=== PATIENT | male | born 1940 | race Hispanic/Latino ===

== ENCOUNTER 2020-09-14 19:33 | Emergency (ER) | payer OTHER ==
[2020-09-14] MEDS ORDERED: NA CHLORIDE 0.9% 1,000 ML IV ONE (19:34)
[2020-09-14] MEDS ORDERED: EPINEPHrine 1 MG/10 ML SYR IV ONE (19:34)
--- NOTE | 2020-09-14 20:08 | EDPHYS ---
Physician Documentation [facility] Name: Linus Jules Age: 80 yrs Sex: Male : 1940 Arrival Date: 09/14/2020 Time: 19:42 Bed 2 Private MD: ED Physician Sofia Mosquera HPI: 09/14 19:59 This 80 yrs old Male presents to ER via EMS with complaints of cardiac arrest .ma2 19:59 Onset: suddenly, 0.5 hour(s) ago. Associated signs and symptoms: Pertinent negatives: ma2 diaphoresis, dizziness, lower extremity pain, lightheadedness, nausea. Severity of pain: At its worst the pain was severe in the emergency department the pain is unchanged. EMS care prior to arrival includes: epinephrine, supplemental oxygen, cpr for 30 min. Historical: - Allergies: 19:51 Unable to obtain; em - PMHx: 19:51 Hypertension; Diabetes - IDDM; em - PSHx: 19:51 Unable to obtain; em - Social history:: Patient/guardian denies using alcohol, street drugs, The patient lives with family. ROS: 19:59 Unable to obtain ROS due to unresponsive. ma2 Exam: 19:59 Head/Face: Normocephalic, atraumatic. Eyes: Pupils equal round and fix dilated, not ma2 responsive to light Neck: intubated with joe tube,Trachea midline, no thyromegaly or masses palpated, Chest/axilla: Normal chest wall appearance and motion. Nontender with no deformity. No lesions are appreciated. Cardiovascular: asystole, no cardiac activity No pulse Abdomen/GI: No distension or tympany. Neuro: unresponsive, gcs 3 19:59 Respiratory: intubated with joe by ems, good equal breath sounds bilaterally ma2 Vital Signs: 19:39 Pulse 0; Resp 16 A; Temp 101.4(R); em 19:45 Pulse 0; Resp 0; ca1 20:24 Weight 75 kg; Height 5 ft. 8 in. (172.72 cm); iw 20:24 Body Mass Index 25.14 (75.00 kg, 172.72 cm) iw Procedures: 19:59 CPR: See CPR flow sheet. Initial patient assessment: unresponsive, The presenting ma2 cardiac rhythm is asystole. the patient was intubated prior to arrival, Compressions: began prior to arrival. at 07:00. Meds given: Epinephrine despite ED evaluation and treatment, the patient . Family notified. CPR was stopped at 07:45. MDM: 19:45 Patient medically screened. ma2 19:59 Differential diagnosis: acute myocardial infarction, costochondritis, esophagitis, ma2 myocarditis, pneumonia, pulmonary embolus, thoracic aortic disection. Data reviewed: vital signs, nurses notes. Administered Medications: 19:33 Drug: EPINEPHrine 0.1mg/mL 1:10,000 1 mg {Note: R lower extremity IO.} Route: IVP; em Site: Other; 21:45 Follow up: Response: Other; rr5 19:34 Drug: Sodium Bicarbonate 1 amp {Note: R lower extremity IO.} Route: IVP; Site: Other; em 21:45 Follow up: Response: Other; rr5 19:34 Drug: NS 0.9% 1000 ml {Note: R lower extremity IO.} Route: IV; Rate: 1 bolus; Site: em Other; 19:45 Follow up: Response: Other; IV Status: Order to discontinue infusion; IV Intake: 500ml rr5 ; 19:36 Drug: EPINEPHrine 0.1mg/mL 1:10,000 1 mg {Note: R lower extremity IO.} Route: IVP; em Site: Other; 21:45 Follow up: Response: Other; rr5 19:39 Drug: EPINEPHrine 0.1mg/mL 1:10,000 1 mg {Note: R lower extremity IO.} Route: IVP; em Site: Other; 21:44 Follow up: Response: Other; rr5 19:42 Drug: EPINEPHrine 0.1mg/mL 1:10,000 1 mg {Note: R lower extremity IO.} Route: IVP; em Site: Other; 21:44 Follow up: Response: Other; rr5 Point of Care Testing: Blood Glucose: 19:32 Blood Glucose: 100 mg/dL; em Ranges: Critical Glucose Levels:Adult <50 mg/dl or >400 mg/dl <40 mg/dl or >180 mg/dl Disposition: 19:59 . ma2 20:06 . ma2 Disposition: Patient pronounced on 09/14/20 19:45 by Sofia Mosquera. Impression: Cardiac arrest. Signatures: Broderick Mcmahon RN CAROLE Sofia Mosquera MD MD ma2 Sly Frank RN RN rr5 Corrections: (The following items were deleted from the chart) 21:52 20:07 09/14/2020 20:07 Patient pronounced on 09/14/2020 at 19:45 by Sofia Mosquera. rr5 Impression: Cardiac arrest. maNick
--- NOTE | 2020-09-14 20:08 | ER ---
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 Onset of symptoms was September 14, 2020 at 18:59. 19:47 Method Of Arrival: EMS: [facility] em 19:47 Acuity: CHIQUI 1 em Triage Assessment: 19:30 General: Appears slender, Behavior is unresponsive. Pain: Unable to use pain scale. em Patient is unresponsive. Neuro: Level of Consciousness is unresponsive. Cardiovascular: Rhythm is asystole. Respiratory: Airway via oral intubation bagged via BVM. Historical: - Allergies: 19:51 Unable to obtain; em - PMHx: 19:51 Hypertension; Diabetes - IDDM; em - PSHx: 19:51 Unable to obtain; em - Social history:: Patient/guardian denies using alcohol, street drugs, The patient lives with family. Assessment: 19:33 General: no central pulse palpable. Neuro:. Cardiovascular: Rhythm is asystole. em 19:35 Reassessment: no central pulse palpable. Cardiovascular: Rhythm is asystole. em 19:39 Reassessment: no central pulse palpable. Cardiovascular: Rhythm is asystole. em 19:42 Reassessment: no central pulse palpable. Cardiovascular: Rhythm is asystole. em 19:44 Reassessment: no central pulse palpable. Cardiovascular: Rhythm is asystole. em 19:45 CPR assessment: unresponsive, no respiratory effort. rr5 19:50 Reassessment: pt has 933$ in [place]cher. em 20:00 Reassessment: [place] police at bedside. ca1 20:28 Reassessment: [facility] machine set up operator has contacted Dr. Wolf and states Dr. Wolf will iw sign off on certificate. 20:34 Reassessment: [facility] staff june howell . rr5 21:10 Reassessment: dr wolf called [facility] and said patient is for [facility]. rr5 21:25 Reassessment: supervisor waterworks signed the form. rr5 21:43 Reassessment: [place] staff arrived from [facility]. rr5 21:45 Reassessment: valuables given to daughter philomena. signed the valuables form. rr5 21:50 Reassessment: according to daughter patient feels not good for couple of days, having rr5 fever, loss of appetite,runny nose. no history of infectious disease, NKA. 22:06 Reassessment: [facility] staff curt updated for some of the information. rr5 Vital Signs: 19:39 Pulse 0; Resp 16 A; Temp 101.4(R); em 19:45 Pulse 0; Resp 0; ca1 20:24 Weight 75 kg; Height 5 ft. 8 in. (172.72 cm); iw 20:24 Body Mass Index 25.14 (75.00 kg, 172.72 cm) iw ED Course: 19:30 Maintain EMS IV. Dressing intact. Good blood return noted. Site clean \T\ dry. Gauge \T\ rr 5 site: intra osseous left lower leg, G22 right FA. 19:42 Patient arrived in ED. mg2 19:45 Sofia Mosquera MD is Attending Physician. ma2 19:50 Triage completed. em 20:06 Sofia Mosquera MD is Pronouncing Provider. ma2 20:07 Sly Frank RN is Primary Nurse. rr5 Administered Medications: 19:33 Drug: EPINEPHrine 0.1mg/mL 1:10,000 1 mg {Note: R lower extremity IO.} Route: IVP; em Site: Other; 21:45 Follow up: Response: Other; rr5 19:34 Drug: Sodium Bicarbonate 1 amp {Note: R lower extremity IO.} Route: IVP; Site: Other; em 21:45 Follow up: Response: Other; rr5 19:34 Drug: NS 0.9% 1000 ml {Note: R lower extremity IO.} Route: IV; Rate: 1 bolus; Site: em Other; 19:45 Follow up: Response: Other; IV Status: Order to discontinue infusion; IV Intake: 500ml rr5 ; 19:36 Drug: EPINEPHrine 0.1mg/mL 1:10,000 1 mg {Note: R lower extremity IO.} Route: IVP; em Site: Other; 21:45 Follow up: Response: Other; rr5 19:39 Drug: EPINEPHrine 0.1mg/mL 1:10,000 1 mg {Note: R lower extremity IO.} Route: IVP; em Site: Other; 21:44 Follow up: Response: Other; rr5 19:42 Drug: EPINEPHrine 0.1mg/mL 1:10,000 1 mg {Note: R lower extremity IO.} Route: IVP; em Site: Other; 21:44 Follow up: Response: Other; rr5 Point of Care Testing: Blood Glucose: 19:32 Blood Glucose: 100 mg/dL; em Ranges: Intake: 19:45 IV: 500ml; Total: 500ml. rr5 Outcome: 19:45 Outcome Patient em 19:45 Condition: 19:45 Patient : Time of 19:45 Pronounced by Sofia Mosquera MD rr5 21:52 Patient left the ED. 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
[2020-09-14 22:11] VITALS: TEMP 101.4
== END 2020-09-14 21:52 ==
LOC: ER 19:33
PROC: 5A12012 Performance of Cardiac Output, Single, Manual (ICD-10-PCS; principal; 2020-09-14)
DX: I46.9 Cardiac arrest, cause unspecified (principal); I10 Essential (primary) hypertension
CPT/HCPCS: 96375; 96374; 92950 ×2; 99285; J0171; J7030